=== PATIENT | female | born 1985 | race Caucasian/White ===

== ENCOUNTER 2016-11-08 03:59 | Inpatient (IN) | payer MEDICAID ==
[~2016-11-08] VITALS: Ht 167.6 cm; Wt 68.6 kg
[2016-11-08] VITALS (20 sets, daily range): BP systolic 99–156; BP diastolic 47–87; PULSE 64–120; TEMP 98–99
[~2016-11-08 03:59] MED LIST: MOTRIN 600600 MG/TAB PO; PERCOCET 325 MG1 TA2 PO; PHENERGAN 25 TA25 MG PO; PHENERGAN25 MG RC; PRENATAL VITAMI1 TA5 PO; ZOFRAN 4MG T4 MG/TAB PO; ZOFRAN8 MG PO
[2016-11-08 04:47] LABS: BASO % 0.3 % (0.0-2.0); EOS # 0.1 (0.0-0.7); EOS % 1.5 % (0-4.0); GRAN # 6.5 (1.4-6.5); GRAN % 69.2 % (42.2-75.2); HEMATOCRIT 39.1 % (37.0-47.0); HEMOGLOBIN 12.9 g/dl (12.5-16.0); LYMPH # 1.9 (1.2-3.4); LYMPH % 19.8 % (20.0-51.0); MEAN CELL VOLUME 87 fl (80.0-100.0); MEAN CORPUSCULAR HEMOGLOBIN 29 pg (27.0-31.0); MEAN CORPUSCULAR HGB CONC 33 g/dl (33.0-37.0); MONO # 0.8 (0.1-0.6); MONO % 8.1 % (1.7-9.3); PLATELET COUNT 150 K/mm3 (130-400); RED BLOOD COUNT 4.48 M/mm3 (4.10-5.30); REDCELL DISTRIBUTION WIDTH-CV 14.6 % (11.5-14.5); WHITE BLOOD COUNT 9.4 K/mm3 (4.8-10.8)
[2016-11-08] MEDS ORDERED: PRENATAL PO (04:55)
[2016-11-08 05:01] LABS: ADJUSTED CALCIUM 9.8 mg/dL (8.4-10.2); ALBUMIN 3.9 gm/dL (3.5-5.0); BILIRUBIN,TOTAL 1.3 mg/dL (0.0-1.0); CALCIUM 9.7 mg/dL (8.4-10.2); CREATININE, serum 0.56 mg/dL (0.52-1.25); POTASSIUM 3.6 mmol/L (3.4-5.0); TOTAL PROTEIN 7.6 gm/dL (6.4-8.2)
[2016-11-09 00:40] VITALS: BP 109/68; PULSE 66; TEMP 97.2
[2016-11-09 04:50] VITALS: BP 104/62; PULSE 63; TEMP 97.7
[2016-11-09 07:47] VITALS: BP 120/70; PULSE 66
[2016-11-09 11:27] LABS: HEMATOCRIT 36.6 % (37.0-47.0)
[2016-11-09 19:53] VITALS: BP 129/79; PULSE 69; TEMP 97.9
[2016-11-10 07:30] VITALS: BP 121/76; PULSE 66; TEMP 97.9
[2016-11-10] MEDS ORDERED: PERCOCET 325 MG1 TA2 PO (09:36)
[2016-11-10] MEDS ORDERED: MOTRIN 800800 MG/TAB PO (09:36)
== END 2016-11-10 10:30 | disposition home or self-care (01) | DRG 775 ==
LOC: LDRO 03:59 → LDR 04:21 → OB 04:21
PROVIDERS: Obstetrics & Gynecology
PROC: 10E0XZZ Delivery of Products of Conception, External Approach (ICD-10-PCS; principal; 2016-11-08)
DX: O99.824 Streptococcus B carrier state complicating childbirth (principal); O13.4 Gestational [pregnancy-induced] hypertension without significant proteinuria, complicating childbirth; Z3A.38 38 weeks gestation of pregnancy; Z37.0 Single live birth
CPT/HCPCS: J2540; J2590; J2795; J7120

== ENCOUNTER 2016-11-22 03:53 | Emergency (ER) | payer MEDICAID ==
[~2016-11-22] VITALS: Ht 170.2 cm; Wt 63.6 kg
[~2016-11-22 03:53] MED LIST changes: +MOTRIN 800800 MG/TAB PO; +PRENATAL PO
[2016-11-22] MEDS ORDERED: TAMIFLU 75MG75 MG PO (04:00)
[2016-11-22 04:30] LABS: INFLUENZA B NEGATIVE
[2016-11-22 04:37] LABS: BASO % 0.3 % (0.0-2.0); GRAN # 4.9 (1.4-6.5); GRAN % 81.6 % (42.2-75.2); HEMATOCRIT 44.7 % (37.0-47.0); HEMOGLOBIN 14.4 g/dl (12.5-16.0); LYMPH # 0.5 (1.2-3.4); LYMPH % 8.4 % (20.0-51.0); MEAN CELL VOLUME 88 fl (80.0-100.0); MEAN CORPUSCULAR HEMOGLOBIN 28 pg (27.0-31.0); MEAN CORPUSCULAR HGB CONC 32 g/dl (33.0-37.0); MEAN PLATELET VOLUME 11.2 fl (7.4-10.4); MONO # 0.6 (0.1-0.6); MONO % 9.4 % (1.7-9.3); PLATELET COUNT 208 K/mm3 (130-400); RED BLOOD COUNT 5.08 M/mm3 (4.10-5.30)
[2016-11-22 04:52] LABS: ADJUSTED CALCIUM 9.1 mg/dL (8.4-10.2); ALBUMIN 4.6 gm/dL (3.5-5.0); CALCIUM 9.6 mg/dL (8.4-10.2); CREATININE, serum 0.74 mg/dL (0.52-1.25); POTASSIUM 3.6 mmol/L (3.4-5.0); TOTAL PROTEIN 8.6 gm/dL (6.4-8.2)
[2016-11-22 05:05] LABS: PH 5 (5-8); URINE APPEARANCE Cloudy; URINE BACTERIA None Seen /hpf; URINE BILIRUBIN Negative (NEGATIVE); URINE BLOOD 3+ (NEGATIVE); URINE COLOR Amber; URINE GLUCOSE Negative (NEGATIVE); URINE KETONE Negative (NEGATIVE); URINE RBC >50 /hpf; URINE UROBILINOGEN Negative (NEGATIVE); URINE WBC >50 /hpf
[2016-11-22 05:10] VITALS: TEMP 100.7
[2016-11-22] MEDS ORDERED: AMOXICILLIN 8751 TAB PO (05:21)
[2016-11-22 05:59] VITALS: BP 131/74; PULSE 96
== END 2016-11-22 06:02 | disposition home or self-care (01) ==
LOC: COL.ER 03:53
PROVIDERS: Emergency Medicine
DX: O86.20 Urinary tract infection following delivery, unspecified (principal); B96.20 Unspecified Escherichia coli [E. coli] as the cause of diseases classified elsewhere; O99.89 Other specified diseases and conditions complicating pregnancy, childbirth and the puerperium; R50.9 Fever, unspecified; M79.1 Myalgia
CPT/HCPCS: J0295; J7030

== ENCOUNTER → 2017-06-18 | Outpatient (CLI) | payer MEDICAID ==
[~2017-06-18] MED LIST changes: +AMOXICILLIN 8751 TAB PO; +TAMIFLU 75MG75 MG PO
== END ==
LOC: COL.RAD 14:47
DX: M79.641 Pain in right hand (principal)

== ENCOUNTER 2017-11-07 21:47 | Emergency (ER) | payer MEDICAID ==
[~2017-11-07] VITALS: Ht 167.6 cm; Wt 61.5 kg
[2017-11-07 21:53] VITALS: BP 129/62; TEMP 98.9
[2017-11-07 23:28] VITALS: PULSE 91
== END 2017-11-07 23:29 | disposition home or self-care (01) ==
LOC: COL.ER 21:47
DX: J11.1 Influenza due to unidentified influenza virus with other respiratory manifestations (principal)

== ENCOUNTER 2018-05-12 12:33 | Emergency (ER) | payer MEDICAID ==
[~2018-05-12] VITALS: Ht 170.2 cm; Wt 63.5 kg
[2018-05-12 12:40] VITALS: TEMP 98.7
[2018-05-12] MEDS ORDERED: PREDNISONE20 MG PO (15:23)
[2018-05-12] MEDS ORDERED: PEPCID 20MG TAB20 MG PO (15:23)
[2018-05-12 15:29] VITALS: BP 107/69; PULSE 75
== END 2018-05-12 15:30 | disposition home or self-care (01) ==
LOC: COL.ER 12:33
DX: L50.9 Urticaria, unspecified (principal); Z98.51 Tubal ligation status
CPT/HCPCS: J7512

== ENCOUNTER → 2019-02-11 | Outpatient (CLI) | payer MEDICAID ==
[~2019-02-11] MED LIST changes: +PEPCID 20MG TAB20 MG PO; +PREDNISONE20 MG PO
[2019-02-11 10:45] LABS: COLLECTION METHOD CLEAN CATCH
[2019-02-11 10:51] LABS: BASO % 0.5 % (0.0-2.0); EOS # 0.1 (0.0-0.7); EOS % 1.7 % (0-4.0); GRAN # 4.6 (1.4-6.5); GRAN % 69.3 % (42.2-75.2); HEMATOCRIT 40.7 % (37.0-47.0); HEMOGLOBIN 13.4 g/dl (12.5-16.0); LYMPH # 1.5 (1.2-3.4); LYMPH % 23.4 % (20.0-51.0); MEAN CELL VOLUME 87 fl (80.0-100.0); MEAN CORPUSCULAR HEMOGLOBIN 29 pg (27.0-31.0); MEAN CORPUSCULAR HGB CONC 33 g/dl (33.0-37.0); MEAN PLATELET VOLUME 10.8 fl (7.4-10.4); MONO # 0.3 (0.1-0.6); MONO % 4.6 % (1.7-9.3); PLATELET COUNT 216 K/mm3 (130-400); RED BLOOD COUNT 4.66 M/mm3 (4.10-5.30); REDCELL DISTRIBUTION WIDTH-CV 12.9 % (11.5-14.5)
[2019-02-11 10:52] LABS: MUCOUS Present /lpf; PH 5 (5-8); URINE APPEARANCE Hazy; URINE BACTERIA Occasional /hpf; URINE BILIRUBIN Negative (NEGATIVE); URINE BLOOD 1+ (NEGATIVE); URINE COLOR Yellow; URINE GLUCOSE Negative (NEGATIVE); URINE KETONE Negative (NEGATIVE); URINE LEUKOCYTE ESTERASE Negative (NEGATIVE); URINE NITRATE Negative (NEGATIVE); URINE PROTEIN(semi-quant) Negative (NEGATIVE); URINE RBC 0-2 /hpf; URINE UROBILINOGEN Negative (NEGATIVE)
[2019-02-11 12:45] LABS: ALBUMIN 4.3 gm/dL (3.5-5.0); BILIRUBIN,TOTAL 0.7 mg/dL (0.0-1.0); CALCIUM 9.3 mg/dL (8.4-10.2); CREATININE, serum 0.62 (0.52-1.25); POTASSIUM 4.2 mmol/L (3.4-5.0); TOTAL PROTEIN 7.8 gm/dL (6.4-8.2)
== END ==
LOC: COL.LAB 10:23
PROVIDERS: Registered Nurse
DX: R10.9 Unspecified abdominal pain (principal)

== ENCOUNTER → 2019-02-22 | Outpatient (CLI) | payer MEDICAID | LOC: COL.RAD 09:14 | DX: R10.2 Pelvic and perineal pain (principal); R10.9 Unspecified abdominal pain ==

== ENCOUNTER 2019-10-15 07:13 | Emergency (ER) | payer SELFPAY ==
[~2019-10-15] VITALS: Ht 167.6 cm; Wt 63.5 kg
[2019-10-15 07:30] VITALS: BP 118/72
[2019-10-15 07:53] LABS: COLLECTION METHOD CLEAN CATCH
[2019-10-15 08:01] LABS: MUCOUS Present /lpf; PH 5 (5-8); URINE APPEARANCE Hazy; URINE BACTERIA None Seen /hpf; URINE BILIRUBIN Negative (NEGATIVE); URINE BLOOD 1+ (NEGATIVE); URINE COLOR Yellow; URINE GLUCOSE Negative (NEGATIVE); URINE KETONE Trace (NEGATIVE); URINE LEUKOCYTE ESTERASE Negative (NEGATIVE); URINE NITRATE Negative (NEGATIVE); URINE PROTEIN(semi-quant) 1+ (NEGATIVE)
[2019-10-15] MEDS ORDERED: TAMIFLU 75MG75 MG PO (08:42)
[2019-10-15 09:25] VITALS: PULSE 89; TEMP 99.5
== END 2019-10-15 09:25 | disposition home or self-care (01) ==
LOC: COL.ER 07:13
PROVIDERS: Emergency Medicine
DX: J11.1 Influenza due to unidentified influenza virus with other respiratory manifestations (principal)